=== PATIENT | female | born 1980 ===

== ENCOUNTER 2024-10-27 22:52 | Emergency (ER) | payer MEDICAID ==
[2024-10-27] MEDS: MVI, Adult with Vitamin K 10 ML, Folic Acid 1 MG, Thiamine 100 MG in Lactated Ringers 1... IV ONE (23:23)
[2024-10-27 23:26] LABS: BASOPHILS PERCENT AUTO 0.3 % (0.0-1.0); EOSINOPHILS PERCENT AUTO 1.1 % (1.0-3.0); LYMPHOCYTES PERCENT AUTO 37.4 % (20.5-50.1); MONOCYTES PERCENT AUTO 8.8 % (2-8); NEUTROPHILS PERCENT AUTO 52.4 % (42.2-75.2); PLATELET COUNT,PLT 335 10^3/uL (150-450); RED BLOOD CELL COUNT 3.90 10^6/uL (4.2-5.4); WHITE BLOOD CELL COUNT,WBC 6.5 10^3/uL (5.0-10.0)
[2024-10-27 23:46] LABS: A/G RATIO 0.8; ALANINE AMINOTRANSFERASE,ALT 27.0 U/L (14-59); ASPARTATE AMNIOTRANSFERASE,AST 26.0 U/L (15-37); BILIRUBIN TOTAL 0.1 mg/dL (0.2-1.0); BLOOD UREA NITROGEN,BUN 8.0 mg/dL (7-18); CARBON DIOXIDE,CO2 25.0 mmol/L (21-32); CHLORIDE,CL 105.0 mmol/L (98-107); CREATININE 0.49 mg/dL (0.55-1.02); EST CRCL DRUG DOSING (CG) 129.15 mL/min; ESTIMATED GFR 121.0 mL/min (>=60); GLUCOSE RANDOM 132.0 mg/dL (70-99); POTASSIUM,K 3.5 mmol/L (3.5-5.1); PROTEIN TOTAL,TP 8.2 g/dL (6.4-8.2); SODIUM,NA 142.0 mmol/L (136-145)
[2024-10-28] MEDS: Take Home: LORazepam 1 MG Tab, 2 Tab Pack PO ONE (00:35)
== END 2024-10-28 00:28 ==
LOC: DL.ED 22:52
DX: F10.20 Alcohol dependence, uncomplicated (principal)
CPT/HCPCS: 36415; 80053; 80307; 83690; 83735; 85025; 96365; 99284; A9270; J1808; J3411; J7120; J3490